=== PATIENT | female | born 1985 | race Caucasian/White ===

== ENCOUNTER 2019-05-16 17:22 | Emergency (ER) | payer MEDICAID ==
[~2019-05-16] VITALS: Ht 157.5 cm; Wt 88.0 kg
[~2019-05-16 17:22] MED LIST: FOLI0.4T2 PO; PREN1TAB49 PO
[2019-05-16 17:42] VITALS: BP 100/52
== END 2019-05-16 20:51 | disposition left against medical advice (07) ==
LOC: ER 17:22
DX: R10.9 Unspecified abdominal pain (principal); Z98.890 Other specified postprocedural states; Z53.21 Procedure and treatment not carried out due to patient leaving prior to being seen by health care provider